=== PATIENT | male | born 1955 | race Two or more races ===

== ENCOUNTER 2018-09-05 15:07 | Emergency (ER) | payer MEDICARE ==
[~2018-09-05] VITALS: Ht 167.6 cm; Wt 86.0 kg
--- NOTE | 2018-09-05 15:40 | NUR ---
EKG VIEWED BY DR PÉREZ. NO CODE CARDIAC AT THIS TIME. REPEAT EKG ORDERED AND CARDIOLOGY CONSULTED.
--- NOTE | 2018-09-05 15:43 | NUR ---
PT STRAIGHT BACK TO TR02
[2018-09-05] MEDS ORDERED: ASPIRIN 81 MG TABLET EC PO ONE (15:45)
[2018-09-05] MEDS ORDERED: ASPIRIN 81 MG TABLET CHEW ONE (15:46)
--- NOTE | 2018-09-05 15:48 | NUR ---
63 Y/O MALE PRESENTS TO ED WITH C/O CP. PER PT "I WOKE UP THIS AM AT 0630 SOON I TURNED MY HEAD TO GET UP I FELT DIZZY. I KEPT THINKING IT WAS NORMAL, BUT IT DIDN'T STOP AND I JUST STAYED DIZZY. I CAME IN BECAUSE IT HASN'T GONE AWAY. I'VE BEEN THROWING UP AFTER I GOTTEN UP. IT'S LIKE RIDING A FAST SPINNING RIDE AT A CARNIVAL. I DIDN'T HAVE ANY CHEST PAIN OR DOWN MY LEFT ARM." NO C/O SOB, TRAUMA, SYNCOPE, D. PT PLACED ON CONT PULSE OX,NIBP,ADMINISTRATIVE SERVICES COORDINATOR.
--- NOTE | 2018-09-05 15:52 | NUR ---
PER PT "IT STILL FEELS LIKE I'M ON A CARNIVAL RIDE."
[2018-09-05] MEDS ORDERED: MECLIZINE CHEWABLE 25 MG TAB ONE (15:57)
[2018-09-05] MEDS ORDERED: MECLIZINE CHEWABLE 25 MG TAB PO ONE (16:00)
[2018-09-05] MEDS ORDERED: METOPROLOL TARTRATE 50 MG TABLET PO ONE (16:00)
[2018-09-05 16:15] LABS: BASOPHILS # (AUTO) 0.04 x10^3/uL (0-0.1); BASOPHILS % (AUTO) 1 % (0-1); EOSINOPHILS # (AUTO) 0.02 x10^3/uL (0-0.4); EOSINOPHILS % (AUTO) 0 % (1-7); LYMPHOCYTES # (AUTO) 1.11 x10^3/uL (1-3.4); LYMPHOCYTES % (AUTO) 15 % (22-44); MD NO; MEAN CORPUSCULAR HEMOGLOBIN 31.4 pg (27.5-34.5); MEAN CORPUSCULAR HGB CONC 33.3 g/dL (33.2-36.2); MEAN CORPUSCULAR VOLUME 94.1 fL (81-97); MEAN PLATELET VOLUME 8.1 fL (7.4-10.4); MONOCYTES # (AUTO) 0.32 x10^3/uL (0.2-0.8); MONOCYTES % (AUTO) 4 % (2-9); NEUTROPHILS # (AUTO) 6.14 x10^3/uL (1.8-6.8); NEUTROPHILS % (AUTO) 80 % (42-75); PLATELET COUNT 249 x10^3/uL (130-400); RED BLOOD COUNT 5.32 x10^6/uL (4.38-5.82); RED CELL DISTRIBUTION WIDTH 13.3 % (9.4-14.8)
[2018-09-05 16:18] LABS: ALBUMIN 4.6 g/dL (3.4-5.0); ANION GAP 8 mmol/L (5-15); CHLORIDE 107 mmol/L (98-107)
[2018-09-05 16:19] LABS: INTERNATIONAL NORMALIZED RATIO 1.02 (0.93-1.1); PROTHROMBIN TIME 10.7 Seconds (9.6-11.5)
[2018-09-05 16:24] LABS: ALANINE AMINOTRANSFERASE 114 U/L (12-78); ALKALINE PHOSPHATASE 89 U/L (45-117); BILIRUBIN,TOTAL 0.9 mg/dL (0.2-1.0); CREATININE 1.08 mg/dL (0.7-1.3); TOTAL PROTEIN 8.8 g/dL (6.4-8.2); TROPONIN I < 0.015 ng/mL (0.000-0.045)
[2018-09-05] MEDS ORDERED: ASPIRIN 81 MG TABLET CHEW PO ONE (16:30)
--- NOTE | 2018-09-05 16:41 | NUR ---
PT STATES "I DO FEEL MUCH BETTER. I CAN TURN MY HEAD FROM SIDE TO SIDE AND I DON'T FEEL LIKE I'M ON A CARNIVAL RIDE." PT ABLE TO MOVE HEAD SIDE TO SIDE WITHOUT ANY ISSUES.
[2018-09-05 16:43] VITALS: BP 130/83
--- NOTE | 2018-09-05 16:48 | NUR ---
Patient/Caregiver given discharge instructions and they have confirmed that they understand the instructions. Patient ambulatory with steady gait. PT LEFT WITH ALL PERSONAL BELONGINGS.
== END 2018-09-05 17:01 | disposition home or self-care (01) ==
LOC: ED 16:55
DX: R42 Dizziness and giddiness (principal); R11.2 Nausea with vomiting, unspecified; I25.2 Old myocardial infarction
CPT/HCPCS: 36415; 71045; 80053; 84484; 85025; 85610; 93005; 99284